=== PATIENT | male | born 1990 | race Caucasian/White ===

== ENCOUNTER 2024-10-24 18:49 | Observation (INO) | payer OTHER, SELFPAY ==
--- NOTE | 2024-10-24 15:24 | ED.GENMED ---
ED Provider Triage
<Jaime Arce PA-C - Last Filed: 10/24/24 15:32>
-
Patient seen by provider in Triage?: Seen in Triage
Attestation: A medical screening examination has been initiated by a qualified medical provider. Based on the assessment performed at this time, it has been determined that an emergent medical condition may exist and the patient has been informed
that further medical evaluation and possible additional diagnostic testing may be needed.
HPI: Palpitations and dizziness that started since 10 AM. Symptoms seem to be somewhat intermittent. No fevers or infectious symptoms. Labs ordered. Patient otherwise stable. Patient's EKG done in triage shows a heart rate of 140 bpm with a
prolonged QT. Patient brought back to the ER immediately for further evaluation.
GENERAL: Alert , in no apparent distress
EYE: No visual abnormalities.
NECK: Trachea midline
ENT: No visible abnormalities.
LUNGS: No acute respiratory distress
NEUROLOGICAL: Alert and oriented
SKIN: Skin intact. No visible changes.
MUSCULOSKELETAL: Moving extremities normally
PSYCH: Normal and appropriate interaction.
This is a medical evaluation conducted in person to initiate diagnostic evaluation and provide initial therapeutics. Please see further documentation by the treating clinician.
History of Present Illness
<Jaime Arce PA-C - Last Filed: 10/24/24 15:32>
General
Chief Complaint: Heart Rate Problem
Time Seen by Provider: 10/24/24 16:05
<Neo Rajput MD - Last Filed: 10/24/24 16:32>
General
Source: patient
Exam Limitations: none
Nursing documentation reviewed up to this point in time: agreed with
History of Present Illness
History of Present Illness:
33-year-old male with distant history of opioid use currently maintained on methadone and reportedly clean for years who presents to the emergency department for evaluation of palpitations. Patient reports symptoms started around 10 AM while he was
at rest and have been constant all day. He reports sensation of racing heart and palpitations. He reports mild associated shortness of breath and dizziness. He denies any chest pain. He denies any other complaints including recent illness,
fever, cough, GI symptoms. He denies having had similar symptoms in the past. He denies any drug use currently and denies any alcohol use. He denies any known cardiac history, apparently there is a family history of A-fib in his father.
Past History
<Jaime Arce PA-C - Last Filed: 10/24/24 15:32>
Past History
ED Past Medical History: None
ED Past Surgical History: None
Social History
Tobacco: Non-smoker
Review of Systems
<Neo Rajput MD - Last Filed: 10/24/24 16:32>
Review of Systems
All Other Systems: ROS reviewed and negative except as documented in HPI and ROS
Constitutional: Denies fever or chills
Respiratory: Reports trouble breathing
Cardiac: Reports palpitations; Denies chest pain, diaphoresis or syncope
ABD/GI: Denies abdominal pain, nausea, vomiting or diarrhea
: Denies flank pain
Musculoskeletal: Denies neck pain or back pain
Neurological: Reports dizzy; Denies headache
Phy Exam
<Neo Rajput MD - Last Filed: 10/24/24 16:32>
Physical Exam
Physical Exam:
General: Awake, alert, oriented x3; no acute distress
Head: Normocephalic, atraumatic
Eyes: Conjunctiva normal, EOMI
Throat: Airway intact, handling secretions
Neck: Trachea midline, no JVD
Lungs: Clear to auscultation bilaterally, no wheezing, rales, rhonchi
Heart: Tachycardia with regular rhythm, no murmurs, gallops, or rubs
Abd: Soft, non distended, nontender
Neuro: No gross deficit
Extremities: No edema in extremities, equal pulses in all extremities
Scores
<Neo Rajput MD - Last Filed: 10/24/24 16:32>
Heart Failure Risk
Heart Failure Risk Score: Not Applicable
Heart Score for Chest Pain Patients
STEMI patient?: Not applicable
Withdrawal Assessment of Alcohol
Withdrawal Assessment Completed?: Not applicable
Course
<Jaime Arce PA-C - Last Filed: 10/24/24 15:32>
Orders/Labs/Results
Orders:
Orders
10/24/24 15:23
ECG [Electrocardiogram (*1)] Urgent
Reason for Study: Palpitations
EKG- Treatment ONCE
10/24/24 15:42
Comprehensive Metabolic Panel Urgent
Magnesium Urgent
NT-proBNP Urgent
Comment: ADD ON
TSH Urgent
Troponin I Urgent
10/24/24 15:43
Complete Blood Count/With Diff Urgent
10/24/24 16:01
Electrocardiogram (*1) Urgent
Reason for Study: Palpitations
EKG- Treatment ONCE
10/24/24 16:05
Adenosine [Adenocard] 18 mg .ROUTE .STK-MED ONE
10/24/24 16:08
D-Dimer Urgent
10/24/24 16:20
0.9% Sodium Chloride 1000 ml [Nss] 1,000 ml IV BOLUS
Metoprolol [Lopressor] 5 mg IV NOW STA
10/24/24 16:25
CT Chest PE Study Urgent
Comment:
Reason For Exam: sob, tachycardia
10/24/24 16:47
Add On- LAB Urgent
Tests Added?: pro-BNP
Abnormal Lab Results
10/24/24 10/24/24 10/24/24
15:42 15:43 16:08
WBC 20.9 H 10^3/uL
(4.8-10.8)
Abs Immat Gran (auto) 0.1 H 10^3/uL
(0-0.05)
Absolute Neuts (auto) 13.5 H 10^3/uL
(1.4-6.5)
Absolute Lymphs (auto) 5.6 H 10^3/uL
(1.2-3.4)
Absolute Monos (auto) 1.4 H 10^3/uL
(0.1-0.6)
D-Dimer 0.53 H ug/mlFEU
(0.00-0.50)
Carbon Dioxide 18 L mmol/L
(22-30)
Glucose 178 H mg/dl
(70-99)
Total Protein 8.5 H g/dl
(6.3-8.2)
Albumin 5.3 H g/dl
(3.5-5.0)
10/24/24 15:43
10/24/24 15:42
Vital Signs
Initial and Last Documented VS:
Initial Vital Signs
Temp Pulse Resp BP Pulse Ox
98.0 F 158 20 165/108 98
10/24/24 15:31 10/24/24 15:31 10/24/24 15:31 10/24/24 15:31 10/24/24 15:31
Last Documented Vital Signs
Temp Pulse Resp BP Pulse Ox
98.0 F 121 13 146/96 99
10/24/24 15:31 10/24/24 16:45 10/24/24 16:45 10/24/24 15:54 10/24/24 16:15
<Neo Rajput MD - Last Filed: 10/24/24 16:32>
Orders/Labs/Results
Orders:
Orders
10/24/24 15:23
ECG [Electrocardiogram (*1)] Urgent
Reason for Study: Palpitations
EKG- Treatment ONCE
10/24/24 15:42
Comprehensive Metabolic Panel Urgent
Magnesium Urgent
NT-proBNP Urgent
Comment: ADD ON
TSH Urgent
Troponin I Urgent
10/24/24 15:43
Complete Blood Count/With Diff Urgent
10/24/24 16:01
Electrocardiogram (*1) Urgent
Reason for Study: Palpitations
EKG- Treatment ONCE
10/24/24 16:05
Adenosine [Adenocard] 18 mg .ROUTE .STK-MED ONE
10/24/24 16:08
D-Dimer Urgent
10/24/24 16:20
0.9% Sodium Chloride 1000 ml [Nss] 1,000 ml IV BOLUS
Metoprolol [Lopressor] 5 mg IV NOW STA
10/24/24 16:25
CT Chest PE Study Urgent
Comment:
Reason For Exam: sob, tachycardia
10/24/24 16:47
Add On- LAB Urgent
Tests Added?: pro-BNP
Abnormal Lab Results
10/24/24 10/24/24 10/24/24
15:42 15:43 16:08
WBC 20.9 H 10^3/uL
(4.8-10.8)
Abs Immat Gran (auto) 0.1 H 10^3/uL
(0-0.05)
Absolute Neuts (auto) 13.5 H 10^3/uL
(1.4-6.5)
Absolute Lymphs (auto) 5.6 H 10^3/uL
(1.2-3.4)
Absolute Monos (auto) 1.4 H 10^3/uL
(0.1-0.6)
D-Dimer 0.53 H ug/mlFEU
(0.00-0.50)
Carbon Dioxide 18 L mmol/L
(22-30)
Glucose 178 H mg/dl
(70-99)
Total Protein 8.5 H g/dl
(6.3-8.2)
Albumin 5.3 H g/dl
(3.5-5.0)
10/24/24 15:43
10/24/24 15:42
Vital Signs
Initial and Last Documented VS:
Initial Vital Signs
Temp Pulse Resp BP Pulse Ox
98.0 F 158 20 165/108 98
10/24/24 15:31 10/24/24 15:31 10/24/24 15:31 10/24/24 15:31 10/24/24 15:31
Last Documented Vital Signs
Temp Pulse Resp BP Pulse Ox
98.0 F 121 13 146/96 99
10/24/24 15:31 10/24/24 16:45 10/24/24 16:45 10/24/24 15:54 10/24/24 16:15
<John Crawford, DO - Last Filed: 10/24/24 17:17>
Orders/Labs/Results
Orders:
Orders
10/24/24 15:23
ECG [Electrocardiogram (*1)] Urgent
Reason for Study: Palpitations
EKG- Treatment ONCE
10/24/24 15:42
Comprehensive Metabolic Panel Urgent
Magnesium Urgent
NT-proBNP Urgent
Comment: ADD ON
TSH Urgent
Troponin I Urgent
10/24/24 15:43
Complete Blood Count/With Diff Urgent
10/24/24 16:01
Electrocardiogram (*1) Urgent
Reason for Study: Palpitations
EKG- Treatment ONCE
10/24/24 16:05
Adenosine [Adenocard] 18 mg .ROUTE .STK-MED ONE
10/24/24 16:08
D-Dimer Urgent
10/24/24 16:20
0.9% Sodium Chloride 1000 ml [Nss] 1,000 ml IV BOLUS
Metoprolol [Lopressor] 5 mg IV NOW STA
10/24/24 16:25
CT Chest PE Study Urgent
Comment:
Reason For Exam: sob, tachycardia
10/24/24 16:47
Add On- LAB Urgent
Tests Added?: pro-BNP
Abnormal Lab Results
10/24/24 10/24/24 10/24/24
15:42 15:43 16:08
WBC 20.9 H 10^3/uL
(4.8-10.8)
Abs Immat Gran (auto) 0.1 H 10^3/uL
(0-0.05)
Absolute Neuts (auto) 13.5 H 10^3/uL
(1.4-6.5)
Absolute Lymphs (auto) 5.6 H 10^3/uL
(1.2-3.4)
Absolute Monos (auto) 1.4 H 10^3/uL
(0.1-0.6)
D-Dimer 0.53 H ug/mlFEU
(0.00-0.50)
Carbon Dioxide 18 L mmol/L
(22-30)
Glucose 178 H mg/dl
(70-99)
Total Protein 8.5 H g/dl
(6.3-8.2)
Albumin 5.3 H g/dl
(3.5-5.0)
10/24/24 15:43
10/24/24 15:42
Vital Signs
Initial and Last Documented VS:
Initial Vital Signs
Temp Pulse Resp BP Pulse Ox
98.0 F 158 20 165/108 98
10/24/24 15:31 10/24/24 15:31 10/24/24 15:31 10/24/24 15:31 10/24/24 15:31
Last Documented Vital Signs
Temp Pulse Resp BP Pulse Ox
98.0 F 121 13 146/96 99
10/24/24 15:31 10/24/24 16:45 10/24/24 16:45 10/24/24 15:54 10/24/24 16:15
<Neo Rajput MD - Last Filed: 10/24/24 16:32>
MDM/Problems Addressed
Differential Diagnosis Includes:
Dysrhythmia including atrial fibrillation, atrial flutter, atrial tachycardia, SVT/AVNRT; could be sinus tachycardia related to hyperthyroidism, infection, PE, pericarditis/myocarditis, anxiety
MDM/Problems Addressed:
33-year-old male presents for evaluation of palpitations and shortness of breath that started rather suddenly this morning. He presents to us hypertensive and tachycardic with heart rate 160 in triage. Normal respiratory rate, normal pulse ox,
afebrile. Physical exam as above. EKG reviewed by me appears to show sinus tachycardia versus atrial tachycardia somewhat less likely atrial flutter with 2:1 conduction. He was given a trial of adenosine x 2 doses without effect. Discussed with
cardiology to review EKG, suspect that this likely is sinus tachycardia. Labs were sent in triage and CBC shows a leukocytosis to 20.9, CMP shows mild metabolic acidosis; troponin undetectable. Thyroid studies pending. Will send for a CTA to rule
out pulmonary embolism. Provide IV fluids. Consider trial of metoprolol. Reassess after the above.
Acute Exacerbation and/or Progression of Chronic Illness:
Acutely hypertensive improved without intervention continue to monitor but no additional antihypertensives are indicated this point in time
Acute Exacerbation and/or Progression of Chronic Illness: HTN
<Neo Rajput MD - Last Filed: 10/24/24 16:32>
*Radiology
Radiology exam reviewed: radiology read reviewed
*Pulse Oximetry
Patient hypoxic: no
*EKG
Interpreted by ED Provider?: Yes
Heart Rate: 140
Rate: tachycardiac
Rhythm: sinus
[place]: normal axis
Interval: normal interval
QRS Pattern: normal QRS
Ischemia: non-specific ST changes
*Critical Care Note
Total Time (30-74mins, 75-104mins- exclusive of procedures): Not Applicable
Data Reviewed
Source: patient and family (Mother)
<Neo Rajput MD - Last Filed: 10/24/24 16:32>
Patient Management
Discussion with other providers: Col[employer] (Discussed with cardiology)
<John Crawford DO - Last Filed: 10/24/24 17:17>
Update Note
Update Note:
5:15 PM care of patient was transitioned pending CT. CT negative for PE. Per signout, will start beta-max and admit for uncontrolled tachycardia
ED Attending Note
<Jaime Arce PA-C - Last Filed: 10/24/24 15:32>
-
Portions of this chart may have been created with voice recognition software.� Occasional wrong word or��sound alike� substitutions may have occurred due to the inherent limitations of voice recognition software.
Discharge Plan
Departure
Patient Disposition: Admit
Date of Disposition: 10/24/24
Time of Disposition: 17:16
Admit to: Telemetry
Presentation/result/management discussed w/ accepting MD/DO: Hospitalist
Discharge Problem:
Tachycardia
Prescriptions:
No Action
methadone 10 mg/mL Concentrate
88 mg PO DAILY
Patient Comments:
06/23/23-@0817- patient here to recieve methadone dosing, trying to reach [facility] at [phone], I called twice, no answer, website stated there close, waiting for a call back from the emergency personal contract administration coordinator, theres no fax
on ther website, in put med rec based on patient
Rx Instructions:
[facility]; patient has take-home doses. Patient family will bring from home for dose confirmation.
alprazolam 1 mg Tablet
1 mg PO TID PRN (Reason: ANXIETY)
Referrals:
NONE,* [Family Provider] -
Interventions
Interventions:
*Risk Screen - Suicide Last Done: 10/24/24 15:31
*General Assessment Last Done: 10/24/24 15:31
*Neglect/Abuse Screening Last Done: 10/24/24 15:31
ED- Fall Risk Assessment Last Done: 10/24/24 15:54
*ED COVID-19 Vaccine History Last Done: 10/24/24 15:51
ED- Cardiac Assessment Last Done: 10/24/24 15:54
ED- Pulmonary Assessment Last Done: 10/24/24 15:54
Discharge Date and Time
Print Language: GIBRALTARIAN
[2024-10-24 15:31] VITALS: BP 165/108
[2024-10-24 15:54] VITALS: BP 146/96
[2024-10-24 15:58] LABS: Hematocrit 46.6 % (39.0-52.0); Hemoglobin 15.8 g/dL (13.0-18.0); Mean Corp Hgb Conc. 33.9 g/dL (33.0-37.0); Mean Corpuscular Volume 85.5 fL (80.0-94.0); Mean Platelet Volume 9.5 fL (7.4-10.4); Platelet Count 400 10^3/uL (130-400); Red Blood Cell Count 5.45 10^6/uL (4.70-6.10); Red Cell Dist. Width 13.7 % (11.5-14.5); White Blood Cell Count 20.9 10^3/uL (4.8-10.8)
[2024-10-24 16:12] LABS: ALT (SGPT) 26 U/L (0-50); AST (SGOT) 27 U/L (17-59); Albumin 5.3 g/dl (3.5-5.0); Alkaline Phosphatase 98 U/L (38-126); Blood Urea Nitrogen 18 mg/dl (9-20); Calcium 9.7 mg/dl (8.4-10.2); Carbon Dioxide 18 mmol/L (22-30); Chloride 98 mmol/L (98-107); Glucose 178 mg/dl (70-99); Magnesium 1.9 mg/dl (1.6-2.3); Sodium 136 mmol/L (135-145); Total Protein 8.5 g/dl (6.3-8.2); eGFR > 60.00
[2024-10-24 16:14] LABS: Troponin I < 0.012 ng/ml
[2024-10-24] MEDS: NSS 1000 IV (16:27)
[2024-10-24 16:34] LABS: TSH 3.55 uIU/ml (0.47-4.68)
[2024-10-24 16:42] LABS: D-Dimer 0.53 ug/mlFEU (0.00-0.50)
[2024-10-24 16:46] LABS: % Basophils 0.2 % (0-2); % Eosinophils 1.1 % (0-6); % Immature Granulocytes 0.4 % (0-0.5); % Lymphocytes 26.7 % (20.5-51.1); % Monocytes 6.7 % (1.7-9.3); % Neutrophils 64.9 % (42.2-75.2); Absolute Basophils 0.1 10^3/uL (0-0.2); Absolute Eosinophils 0.2 10^3/uL (0-0.7); Absolute Immature Granulocytes 0.1 10^3/uL (0-0.05); Absolute Lymphocytes 5.6 10^3/uL (1.2-3.4); Absolute Monocytes 1.4 10^3/uL (0.1-0.6); Absolute Neutrophils 13.5 10^3/uL (1.4-6.5); Nucleated Red Blood Cells % 0 % (-)
[2024-10-24 17:15] LABS: NT-proBNP < 20.0 pg/ml
[2024-10-24] MEDS: LOPRESSOR 5 MG IV (17:16)
--- NOTE | 2024-10-24 17:20 | HPS.HSE ---
Family Physician
-
Family Physician: * NONE
Chief Complaint
-
palpitations
History of Present Illness
Patient is a 33-year-old male with past medical history significant for depression, anxiety and hx of opioid dependency who presented to [facility] ED for evaluation of palpitations. Patient reports that at approximately 10am this morning
he began feeling palpitations and felt his heart was racing, he states this started after his mom left to take his dad to the hospital with atrial fibrillation. He states he has had episodes before of racing heart rate but normally resolved rather
quickly. Today it did not seem to resolve so he came for evaluation. He reports history of anxiety with prescription for alprazolam, reports he has been out of medication for a while and no recent script. Patient denies any recent illness,
dizziness, fever, chills, chest pain, cough, shortness of breath, nausea, vomiting, constipation, diarrhea or urinary symptoms.
Medical History
Past Medical History
Past Medical History: Reports Other
Additional Past Medical History:
depression
anxiety
hx of opioid dependency
Past Surgical History: Reports Other
Additional Past Surgical History:
eustachian tubes
Social History
Tobacco: Smoker (smokes socially, 1 pack per week)
Alcohol: None
Drug: Former User
Personal: Single
Living: With Family
Employment: Not Employed
Family History
Family History: Other (Father: atrial fibrillation )
Allergies / Home Medications
Allergies reflects when Allergies were last updated in [place].
Home Medications with original date entered in [place]
Allergy/Medication List:
Allergies
Allergy/AdvReac Type Severity Reaction Status Date / Time
No Known Allergies Allergy Verified 10/24/24 15:35
Home Medications
methadone 10 mg/mL oral concentrate 88 mg PO DAILY 06/23/23
alprazolam 1 mg tablet 1 mg PO TID PRN ANXIETY 10/24/24
Review of Systems
-
History Source: Patient
Constitutional: Reports No Symptoms
EENT: Reports No Symptoms
Respiratory: Reports No Symptoms
Cardiac: Reports Palpitations
Abdomen/GI: Reports No Symptoms
: Reports No Symptoms
Musculoskeletal: Reports No Symptoms
Skin: Reports No Symptoms
Neurological: Reports No Symptoms
Endocrine: Reports No Symptoms
Hematologic/Lymphatic: Reports No Symptoms
Psych: Reports No Symptoms
Physical Exam
Vital Signs
Vital Signs
Temp Pulse Resp BP Pulse Ox
98.0 F 106 13 146/96 99
10/24/24 15:31 10/24/24 17:16 10/24/24 16:45 10/24/24 15:54 10/24/24 16:15
Physical Exam
General: Well Developed, Well Nourished, No Apparent Distress, Comfortable and Conversant
HEENT: NormoCephalic, Moist mucous membranes, Atraumatic, PERRLA, [place] Conjunctivae, Nose Appears Normal and Ears Appear Normal
Respiratory: Clear and Non Labored Respirations
Cardiac: S1/S2, Regular Rhythm and Tachycardia; No Murmur, Rub or Gallop
Breast: Deferred by me
GI: Soft, Non Tender, Non Distended and Normal Bowel Sounds; No Organomegaly
Rectal: Deferred by Provider
Musculoskeletal: No Clubbing, No Cyanosis and No Edema
Skin: Warm and IV/Catheter Site; No Rash
Neuro: Awake, Alert, AO x 3 and Nonfocal/grossly intact
Psych: Calm and Intact Judgment/Insight
Laboratory Results
-
10/24/24 15:43
10/24/24 15:42
Laboratory Results
Total Bilirubin 1.0 mg/dl (0.2-1.3) 10/24/24 15:42
AST 27 U/L (17-59) 10/24/24 15:42
ALT 26 U/L (0-50) 10/24/24 15:42
Alkaline Phosphatase 98 U/L (38-126) 10/24/24 15:42
Troponin I < 0.012 ng/ml 10/24/24 15:42
Data Reviewed
-
CT Scan: Report Reviewed by me (Chest: Mild respiratory motion artifact, slightly limiting resolution of the exam. Given this limitation, there is no convincing evidence for pulmonary embolism. Mild dependent atelectasis in the posterior lower
lungs. The rest of the lungs appear clear. )
Medical Tests (Nuc Med, Echo, EKG etc): Report Reviewed by me (EKG: Critical Test Result: Long QTc ACCELERATED JUNCTIONAL RHYTHM ABNORMAL ECG)
Lab Data: Labs Reviewed by me (WBC 20.9, D-dimer 0.53, troponin <0.012, BNP <20.0, )
Impression/Plan
-
IMPRESSION/PLAN:
#palpitations
Chest CT: Mild respiratory motion artifact, slightly limiting resolution of the exam. Given this limitation, there is no convincing evidence for pulmonary embolism.
Mild dependent atelectasis in the posterior lower lungs. The rest of the lungs appear clear.
EKG: Critical Test Result: Long QTc
ACCELERATED JUNCTIONAL RHYTHM
- admit to telemetry
- consult cardiology
#depression
#anxiety
patient treated with alprazolam, script ran out and has not had new one in a while
#hx of opioid abuse
#methadone dependency
maintained on methadone for 7 years
Code status: Full code
DVT prophylaxis: SCDs
[2024-10-24 17:51] LABS: Amphetamines Negative (Negative); Barbiturates Negative (Negative); Benzodiazepines Positive (Negative); Buprenorphine Negative (Negative); Cocaine Negative (Negative); Marijuana Positive (Negative); Methadone Positive (Negative); Methamphetamines Negative (Negative); Opiates Negative (Negative); Phencyclidine Negative (Negative); Tricyclic Antidepressants Negative (Negative)
[2024-10-24 18:06] LABS: Fentanyl, Urine Negative (Negative)
--- NOTE | 2024-10-24 19:02 | W.PN.UPDATE ---
Update Note
Progress Note Update
This note serves as an addendum to the H&P by tooling mechanic LAMONT Sonia Obrien
HPI
33M current smoker HX depression, anxiety, chronic methadone dependent former opoid use disorder seen at ER palpitations, racing heart HX of racing heart episodes but normally resolved rather quickly.
Today it did not seem to resolve so he came for evaluation.
- HX anxiety with prescription for alprazolam, reports he has been out of medication for a while and no recent script. -
ROS: denies any recent illness, dizziness, fever, chills, chest pain, cough, shortness of breath
Reviewed VS: HR 140s to 120s . Normotensive.
PE
Gen: Anxious
HEENT: anicteric
Neck: supple
Lungs: CTA
Cor: tachycardia
Abdomen: soft benign
SHAPE BRICK MOLDER: AAO3
MS: no edema
Psych: anxious
Data
WCC 20.9
DD 0.53
CO2 18
BG 178
NEG TPNI
proBNP < 20
nl TSH
EKG
ACCELERATED JUNCTIONAL RHYTHM
ABNORMAL ECG
WHEN COMPARED WITH ECG OF 24-OCT-2024 15:28,
JUNCTIONAL RHYTHM HAS REPLACED SINUS RHYTHM
Confirmed by MD FIDEL, CARON ([id number]) on 10/24/2024 6:42:[address] PE Study
- Mild respiratory motion artifact, slightly limiting resolution of the exam.
- Given this limitation, there is no convincing evidence for pulmonary embolism.
- Mild dependent atelectasis in the posterior lower lungs. The rest of the lungs appear clear.
ASSESSMENT & PLAN
Persistent tachycardia DDX: Xanax WDS
Accelerated junctional accelerated rhythm
S/P IV Metoprolol at ER
- TLM monitor
- [facility] card consult
Depression and anxiety
Patient treated with alprazolam, script ran out and has not had new one in a while
- observe
- would not not resume Xanax for now
HX chronic methadone dependent former opioid use disorder for last 7 yrs
accountant supervisor methadone once a week
DVT Px: SCD
Code: Full code
Obs TLM
[2024-10-24 20:08] VITALS: BP 136/98; BMI 30.5
[2024-10-24 23:46] VITALS: BP 122/76
[2024-10-25 03:12] VITALS: BP 133/76
--- NOTE | 2024-10-25 05:11 | DOWNTIME ---
There was a [facility] Downtime on 10/25/2024 from 0100 to 10/25/2023 at 0235 . Downtime documentation of patient's care, including medication administrations, has been reconciled in the electronic record per guidelines. Refer to the
patient's paper chart under the miscellaneous tab to see printed paper medication records and downtime forms.
--- NOTE | 2024-10-25 07:20 | W.PN.HOSP.TC ---
Addendum entered and electronically signed by Alejandro Keita MD 10/25/24 23:51:
Attending Addendum:
I saw and evaluated the patient. I reviewed the resident�s note and agree with findings and plan as documented in the resident�s note. Sub: no further palps. no CP. Full 12 point ROS reviewed and negative except as documented Exam: Vitals reviewed
in chart GEN-NAD heart RRR lungs clear abd soft LE no edema
#palpitations/sinus tachycardia
-PE r/o
-secondary to benzo and methadone w/d
-resolved
-echo- WNL
-for OP information systems security specialist
-stable for DC home per cards
#depression
#anxiety
restart alprazolam
#hx of opioid abuse
#methadone dependency
restart methadone
Code status: Full code
DVT prophylaxis: SCDs
Time spent coordinating care, DC planning, review of DC plan of care with resident, transition of care, review of records, med rec/scripts sent electronically, consults, notes, d/w consultants, nursing, cards and CM� 31 mins
Original Note:
Today's Communication/Plan
-
Continue methadone, alprazolam.
Check echo
Discharge planning
Assessment / Plan
Assessment / Plan
33-year-old male with PMH of MDD, anxiety, opioid dependence on methadone, who presented to ED on 10/24/2024 for unresolving palpitations. Symptoms started when his mom took his dad to the hospital for A-fib. Reports history of anxiety that
responded to alprazolam but has been out of this medication for a while with no prescription. Denies sick contacts, recent illness, dizziness, fever, chills, chest pain, shortness of breath, nausea, vomiting, diarrhea, urinary symptoms.
Assessment/plan:
#Possible Panic attack
-History of anxiety/depression
-Chest CT negative for PE, pleural effusion.
-Troponin negative.
-PDMP reviewed last prescription for alprazolam filled 10/09/2024 for 25 days.
-Start alprazolam.
-Monitor on telemetry
-Urine tox screen positive for benzos, methadone and THC; negative for stimulants.
#Sinus tachycardia
-ECG with accelerated junctional rhythm with prolonged QTc.
-TSH WNL.
-Echo today per cardiology.
-Outpatient cardiac monitoring.
-Cardiology appreciated.
#Leukocytosis
-Improved, most likely inflammatory reaction.
-Remains afebrile.
#History of opioid abuse
-No evidence of opioid withdrawal.
-Continue chronic methadone therapy.
DVT PPx:
CODE STATUS: Full code
Data:
CT chest PE study 10/24/2024:
Mild respiratory motion artifact, slightly limiting resolution of the exam. Given this limitation, there is no convincing evidence for pulmonary embolism.
Mild dependent atelectasis in the posterior lower lungs. The rest of the lungs appear clear.
Echocardiography 10/25/2024:
Normal biventricular size and function.
No significant valvular pathology.
Anticipated Discharge: Today
Subjective/Interval History
-
Date of Service: October 25, 2024
Patient seen and examined. Reports that he was having unabating palpitations that was different from his usual. Endorsed having caffeinated beverage from [employer] prior to onset of his symptoms which is also unusual for him. He denies sick
contacts, stimulant use, or other nonprescribed medications. He did state that he has not taken his alprazolam for about a week because he gives it to his dad to keep because he does not want to get addicted to it. Currently, he started using the
hospital and he did not get his alprazolam. He denies chest pain, shortness of breath, fever or chills. Overall, patient is feeling well today.
Objective Data
-
Labs:
Laboratory Results
10/25/24
06:15
WBC Pending
Hgb Pending
Hct Pending
Plt Count Pending
Sodium Pending
Potassium Pending
Chloride Pending
Carbon Dioxide Pending
BUN Pending
Creatinine Pending
Glucose Pending
Calcium Pending
Vital Signs:
Vital Signs
Temp Pulse Resp BP Pulse Ox
97.9 F 70 18 133/76 97
10/25/24 03:12 10/25/24 03:12 10/25/24 03:12 10/25/24 03:12 10/25/24 03:12
I&O
10/24/24 10/25/24 10/26/24
06:59 06:59 06:59
Intake Total 480 / 480
Balance 480 / 480
Review of Systems
-
History Source: Patient
All other systems: Reviewed and negative
Physical Exam
-
General: Well Developed, No Apparent Distress and Comfortable
HEENT: Normocephalic, Atraumatic and Moist Mucous Membranes
Respiratory: Clear to Auscultation and Non Labored Respirations; Negative Wheezes
Cardiac: Regular Rhythm and S1/S2; Negative Murmur, Rub or Gallop
GI: Soft, Nontender, Nondistended and Normal Bowel Sounds; Negative Organomegaly
Rectal: Deferred by Provider
Musculoskeletal: No Clubbing, No Cyanosis and No Edema
Skin: Warm and Dry; Negative Rash
Neuro: Awake, AO x 3 and Nonfocal/Grossly Intact
Psych: Calm
Data Reviewed
-
CT Scan: Image personally visualized and interpreted, Report Reviewed by me and Discussed with Physician
Labs: Labs Reviewed by me and Discussed with Physician
Old Records: Reviewed (Mild leukocytosis)
[2024-10-25 07:30] VITALS: BP 121/76
[2024-10-25 07:58] LABS: Hemoglobin 14.9 g/dL (13.0-18.0); Mean Corp Hgb Conc. 33.9 g/dL (33.0-37.0); Mean Corpuscular Hgb 29.4 pg (27.0-31.0); Mean Platelet Volume 9.8 fL (7.4-10.4); Platelet Count 343 10^3/uL (130-400); Red Blood Cell Count 5.06 10^6/uL (4.70-6.10); Red Cell Dist. Width 13.9 % (11.5-14.5); White Blood Cell Count 12.3 10^3/uL (4.8-10.8)
[2024-10-25 08:43] LABS: Blood Urea Nitrogen 13 mg/dl (9-20); Calcium 9.4 mg/dl (8.4-10.2); Carbon Dioxide 26 mmol/L (22-30); Chloride 101 mmol/L (98-107); Estimated Creatinine Clearance > 125 ml/min; Glucose 95 mg/dl (70-99); Potassium 4.6 mmol/L (3.5-5.1); Sodium 138 mmol/L (135-145); eGFR > 60.00
--- NOTE | 2024-10-25 09:56 | CON.CAR ---
Addendum entered and electronically signed by Yaritza Graves MD 10/25/24 12:38:
I saw and examined the patient.
The Floor Cleaner's note was reviewed and I agree with the note.
Comment:
Patient with intermittent palpitations/sinus tachycardia. He did have a caffeinated beverage ([employer]) prior to coming to ER which is a bit unusual for him. We discussed at great length. He did also have an increased white blood count during
hospital stay we will defer to primary service. No obvious signs of infection on history and physical exam. He denies any recent energy drinks, Sudafed or sinus medications, denies nasal sprays or other stimulants. EKG and telemetry seems to be
consistent with sinus tachycardia. There is no obvious abrupt onset or stopping noted. He is feeling well overall.
Plan will be hydration, check echocardiogram for structural abnormality, outpatient monitor, avoid stimulants. Stable for discharge once echocardiogram and other testing arranged. Of note thyroid function testing is normal.
Original Note:
Consultation
Consultation Request
Date/Time Consultation Performed: 10/25/24
Requesting Provider: Dr. Keita
Performing Provider: Laura Bullard PA-C for Dr. Yaritza Graves
Reason for Consultation: palpitations
Medical History
-
Chief Complaint: palpitations
History of Present Illness:
Patient is a 33-year-old male with past medical history of opioid abuse on chronic methadone, anxiety on as needed Xanax who reports yesterday around 10 PM noted feeling of heart racing/pounding out of his chest. He reports he felt as though he felt
better being up and pacing rather than lying down. He reports he has had similar feelings before in setting of his anxiety however normally feeling is short lived. He reports last night his symptoms persisted for several hours. His father has afib
and reports checked patient's pulse which was rapid. In ER he was given dose of IV lopressor with improvement. He reports he has not had symptoms since then. Denies recent substance abuse, ETOH, new supplements. He states he has not taken his xanax
recently. Reports he had a coffee yesterday at 5:30AM which is not his typical but nothing since that time. He denies recent illnesses to his knowledge. Cardiology consulted for evaluation.
PMH:
History of opioid abuse, on chronic methadone
anxiety/depression
Past Medical History
Past Medical History: Other (in HPI)
Social History
Tobacco: Non-Smoker
Alcohol: None
Drug: Marijuana
Living: With Family
Employment: Not Employed
Family History
Family History: Other (afib in father)
Allergies / Home Medications
Allergy/AdvReac Type Severity Reaction Status Date / Time
No Known Allergies Allergy Verified 10/24/24 15:35
�Medication �Instructions �Recorded �Confirmed �Type
methadone 10 mg/mL oral concentrate 88 mg PO DAILY 06/23/23 10/24/24 History
alprazolam 1 mg tablet 1 mg PO TID PRN ANXIETY 10/24/24 10/24/24 History
Review of Systems
-
History Source: Patient and Family
All other systems: Negative unless noted
Physical Exam
Vital Signs
Temp Pulse Resp BP Pulse Ox
98.3 F 74 20 121/76 98
10/25/24 07:30 10/25/24 07:30 10/25/24 07:30 10/25/24 07:30 10/25/24 07:30
Lab Results
10/25/24 06:15
10/25/24 06:15
Troponin I < 0.012 ng/ml 10/24/24 15:42
Rjz-N-Kwxqoloengj Pept < 20.0 pg/ml 10/24/24 15:42
Physical Exam
General: No Apparent Distress and Comfortable
HEENT: Normocephalic, Anicteric and Moist Mucous Membranes
Respiratory: Clear and Non Labored Respirations
Cardiac: S1/S2 and Regular Rhythm
GI: Soft, Non Tender, Non Distended and Normal Bowel Sounds
Musculoskeletal: No Clubbing, No Cyanosis and No Edema
Skin: Warm and Dry
Neuro: AO x 3
Impression / Plan
-
Primary Salesperson [employer]: none
Assessment:
Palpitations
Sinus tachycardia
Leukocytosis, improving
History of opioid abuse, on chronic methadone
anxiety/depression
Plan:
-Patient presents with palpitations and tachycardia starting around 10PM last night
-upon review of tele and EKGs, no clear arrhythmias noted - appears to be sinus tach. will review EKGs with EP.
-chest CT negative for PE.
-echo ordered by me
-TSH WNL
-trop negative x1
-will plan for OP manager hi upon DC
-if in future felt to need av thelma blocking agents, will need to be cautious with chronic methadone.
-with leukocytosis on admission, however denies recent illness, not feeling sick otherwise. defer work up to primary service
-will arrange OP cardiac follow up. if echo ok, can be discharged later today
-d/w patient and father at bedside
Data Reviewed
-
EKG: Tracing Personally Visualized and interpreted
CT Scan: Report Reviewed by me
Labs: Labs Reviewed by me
Old Records: Reviewed
[2024-10-25] MEDS: METHADONE 100 MG/10 ML 88 MG PO (10:19)
[2024-10-25] MEDS: XANAX 1 MG PO (10:21)
[2024-10-25 11:43] VITALS: BP 130/87
[2024-10-25 15:01] VITALS: BP 112/76
--- NOTE | 2024-10-25 16:04 | W.DCSUMMARY ---
Addendum entered and electronically signed by Alejandro Keita MD 10/25/24 23:52:
Read, reviewed, and agree. See same day progress note for additional details.
Baljeet Keita MD
Original Note:
Documented by User: Al Gr MD, Resident 10/25/24 17:22
Discharge Summary
Discharge Data
Date of Admission: 10/24/24
Date of Discharge: 10/25/24
-
Pending Results: Yes
Additional Pending Results:
MRSA screening
Hospital Course
Discharging Physician : Alejandro Keita MD ; Al Gr MD
Disposition : Home
Primary care physician : None, referral provided.
Principal Discharge diagnosis :
Panic attack
Leukocytosis
Sinus tachycardia
Chronic Discharge diagnosis :
Anxiety disorder
History of opioid abuse
Hospital Course :
33-year-old male with PMH of MDD, anxiety, opioid dependence on methadone, who presented to ED on 10/24/2024 for unresolving palpitations. He has a history of anxiety and is treated with alprazolam as needed which she was not able to get because
his dad who is in possession of his medications was not at home. After several hours of unresolved palpitations patient came to the hospital for evaluation and management.
Possible panic attack: He has a history of anxiety and did not take his alprazolam when he should have needed it. UDS negative for stimulants. PDMP reviewed. Started him on alprazolam. He did not have any further episodes of palpitation. A CT
angiography of chest was also done and was negative for pulmonary embolism.
Sinus tachycardia: He had no obvious evidence of signs of infection while in the hospital. His EKG and telemetry was consistent with sinus tachycardia while in the ED. His thyroid function was within normal limits. He was seen by cardiology who
ordered an echocardiogram to be to check for structural abnormalities. 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 He has been instructed to
avoid any stimulants.
Leukocytosis: His WBC count on admission was 20.9 which improved to 12.3 after 1 day stay in the hospital. Again, there is no obvious sign of infection and the WBC count of 12.2 seems to be his baseline.
History of opioid abuse: Patient received a dose of methadone while in the hospital and had no obvious signs of opioid withdrawal.
Condition on discharge: Awake, alert and oriented x3, answer question properly, able to make own decision and take care of activities of daily living, speech clear and comprehensive, continent of the bowel and bladder, ambulate without preschool teacher assistant,
goes home where lives with the family independently.
Important imaging findings :
ECG 10/24/2024:
Critical Test Result: Long QTc
ACCELERATED JUNCTIONAL RHYTHM
CT chest PE 10/24/2024:
Mild respiratory motion artifact, slightly limiting resolution of the exam. Given this limitation, there is no convincing evidence for pulmonary embolism.
Mild dependent atelectasis in the posterior lower lungs. The rest of the lungs appear clear.
Echocardiography 10/25/2024:
Normal biventricular size and function.
No significant valvular pathology.
Discharge Plan
-
Patient Disposition: Home (Routine Discharge)
Discharge Diagnosis/Procedures: Panic attack
Leukocytosis
Sinus tachycardia
Hx of opioid abuse
Condition: Good
Diet: No restrictions
Activity: No restrictions
Driving Restrictions: As prior to admission
Bathing Restrictions: None
Referrals:
[facility] [Outside] - in two weeks
Claudia Centeno CRNP [Specified Professional Personl] - 11/09/24 8:40 am (You have a cardiology follow up appointment at the [place] office. Please call with questions. )
Prescriptions:
Continued
methadone 10 mg/mL Concentrate
88 mg PO DAILY
Patient Comments:
06/23/23-@2197- patient here to recieve methadone dosing, trying to reach [facility] at [phone], I called twice, no answer, website stated there close, waiting for a call back from the emergency personal transportation maintenance supervisor, theres no fax
on ther website, in put med rec based on patient
Rx Instructions:
[facility]; patient has take-home doses. Patient family will bring from home for dose confirmation.
alprazolam 1 mg Tablet
1 mg PO TID PRN (Reason: ANXIETY)
Discharge Orders:
Discharge Patient (As Directed); Ordered 10/25/24
Ordered By: Al Gr
Discharge Date and Time
Discharge Date/Time: 10/25/24 18:05
Print Language: VINCENTIAN

Documented by User: Alejandro Keita MD 10/25/24 23:45
Discharge Summary
Discharge Data
Date of Admission: 10/24/24
Date of Discharge: 10/25/24
Discharge Plan
-
Patient Disposition: Home (Routine Discharge)
Discharge Diagnosis/Procedures: Panic attack
Leukocytosis
Sinus tachycardia
Hx of opioid abuse
Condition: Good
Diet: No restrictions
Activity: No restrictions
Driving Restrictions: As prior to admission
Bathing Restrictions: None
Referrals:
[facility] [Outside] - in two weeks
Claudia Centeno CRNP [Specified Professional Personl] - 11/09/24 8:40 am (You have a cardiology follow up appointment at the [place] office. Please call with questions. )
Prescriptions:
Continued
methadone 10 mg/mL Concentrate
88 mg PO DAILY
Patient Comments:
06/23/23-@1347- patient here to recieve methadone dosing, trying to reach [facility] at [phone], I called twice, no answer, website stated there close, waiting for a call back from the emergency personal transportation maintenance supervisor, theres no fax
on ther website, in put med rec based on patient
Rx Instructions:
[facility]; patient has take-home doses. Patient family will bring from home for dose confirmation.
alprazolam 1 mg Tablet
1 mg PO TID PRN (Reason: ANXIETY)
Discharge Orders:
Discharge Patient (As Directed); Ordered 10/25/24
Ordered By: Al Gr
Discharge Date and Time
Discharge Date/Time: 10/25/24 18:05
Print Language: VINCENTIAN
--- NOTE | 2024-10-25 16:24 | CM ---
Alert awake oriented patient who lives with his parents lives in a 2 story home with 2 step to enter and 8 steps to bed and bathroom. He is independent in all activities of daily living.He was offered VN he declined need.
No VN hx / No SNF history
Ph[facility]acy [facility]
PCP none Pt given Residence [facility] [phone] to set up PCP
PLAN Home Declined VN
== END 2024-10-25 18:05 | disposition home or self-care (01) ==
LOC: 4 EAST ACU 18:49
PROVIDERS: Nurse Practitioner Family; Physician Assistant Medical; Student in an Organized Health Care Education/Training Program; ADMITTING PHYSICIAN Internal Medicine; ATTENDING PHYSICIAN Family Medicine; EMERGENCY PHYSICIAN Emergency Medicine; OTHER PHYSICIAN Internal Medicine Cardiovascular Disease
DX: F41.0 Panic disorder [episodic paroxysmal anxiety] (principal); R42 Dizziness and giddiness; R00.2 Palpitations; F17.210 Nicotine dependence, cigarettes, uncomplicated; J98.11 Atelectasis; F32.A Depression, unspecified; F11.20 Opioid dependence, uncomplicated; R00.0 Tachycardia, unspecified; D72.829 Elevated white blood cell count, unspecified; E87.20 Acidosis, unspecified; I10 Essential (primary) hypertension; Z91.148 Patient's other noncompliance with medication regimen for other reason
CPT/HCPCS: 71275; 80048; 80053; 80306; 80307; 83735; 83880; 84443; 84484; 85025; 85027; 85379; 87070; 93005; 93306; 96361; 96374; 99285; 99406; G0378; J0153; Q9967